=== PATIENT | female | born 1955 | race Caucasian/White ===

== ENCOUNTER → 2023-11-23 08:13 | Outpatient (REF) | payer OTHER, SELFPAY | LOC: HWWDC 08:13 | PROVIDERS: ATTENDING PHYSICIAN Obstetrics & Gynecology; FAMILY PHYSICIAN Internal Medicine | DX: Z12.31 Encounter for screening mammogram for malignant neoplasm of breast (principal) | CPT/HCPCS: 77063; 77067 ==

== ENCOUNTER 2024-09-23 14:28 | Emergency (ER) | payer MEDICARE, SELFPAY ==
[2024-09-23 14:58] VITALS: BP 158/93
[2024-09-23 15:23] LABS: % Basophils 0.4 % (0-2); % Eosinophils 0.2 % (0-6); % Immature Granulocytes 0.2 % (0-0.5); % Lymphocytes 21.8 % (20.5-51.1); % Monocytes 6.1 % (1.7-9.3); % Neutrophils 71.3 % (42.2-75.2); Absolute Lymphocytes 1.2 10^3/uL (1.2-3.4); Absolute Monocytes 0.3 10^3/uL (0.1-0.6); Hematocrit 40.5 % (37.0-47.0); Hemoglobin 13.6 g/dL (12.0-16.0); Mean Corp Hgb Conc. 33.6 g/dL (33.0-37.0); Mean Corpuscular Hgb 29.8 pg (27.0-31.0); Mean Corpuscular Volume 88.6 fL (81.0-99.0); Mean Platelet Volume 10.1 fL (7.4-10.4); Nucleated Red Blood Cells % 0 %; Platelet Count 242 10^3/uL (130-400); Red Blood Cell Count 4.57 10^6/uL (4.20-5.40); Red Cell Dist. Width 12.8 % (11.5-14.5); White Blood Cell Count 5.6 10^3/uL (4.8-10.8)
[2024-09-23 15:39] LABS: ALT (SGPT) 21 U/L (0-35); AST (SGOT) 27 U/L (14-36); Albumin 4.8 g/dl (3.5-5.0); Alkaline Phosphatase 67 U/L (38-126); Blood Urea Nitrogen 17 mg/dl (7-17); Calcium 10.9 mg/dl (8.4-10.2); Carbon Dioxide 30 mmol/L (22-30); Chloride 100 mmol/L (98-107); Glucose 93 mg/dl (70-99); Potassium 4.4 mmol/L (3.5-5.1); Sodium 137 mmol/L (135-145); Total Bilirubin 0.6 mg/dl (0.2-1.3); Total Protein 7.4 g/dl (6.3-8.2); eGFR > 60.00
[2024-09-23 15:45] LABS: Troponin I < 0.012 ng/ml
--- NOTE | 2024-09-23 16:49 | ED.GENMED ---
History of Present Illness
General
Chief Complaint: Cardiac Symptoms
Time Seen by Provider: 09/23/24 16:48
History of Present Illness
History of Present Illness:
68-year-old female history of hypertension, hyperlipidemia presenting with chest pain described as a throbbing dull ache starting last night. Patient states that pain is intermittent, can last up to 1 hour. Patient denies shortness of breath,
fever, chills, cough or leg swelling. Patient states that she was able to walk the treadmill with no worsening of symptoms this morning. Patient states that did get better when she rested though. Patient states that she was seen by her PCP who
did an EKG, advised to go to the ER for further evaluation. Patient denies any chest pain currently
Past History
Past History
ED Past Medical History: HTN
ED Past Surgical History: None
Social History
Tobacco: Non-smoker
Alcohol: None
Family History
Family History: Other (CVA)
Phy Exam
Physical Exam
Physical Exam:
General: Alert, no acute distress
Head: NCAT
Eyes: clear conjunctiva
Neck: supple
Cardiac: regular rate and rhythm, no murmur
Lungs: clear to auscultation bilaterally. No wheezes, rales, or rhonchi. Speaking full unlabored sentences. No respiratory distress.
Abdomen: soft, nondistended nontender. No rebound or guarding.
MSK: no lower extremity edema bilaterally. No deformity
Skin: warm, dry
Neuro: Alert and oriented x3. no focal deficits
Scores
Heart Score for Chest Pain Patients
STEMI patient?: No
History: Slightly or Non-Suspicious
ECG: Normal
Age: >/= 65 years
Risk Factors: 1 or 2 Risk Factors
Troponin: </= Normal Limit
Heart Score for Chest Pain Patients: 3
Heart Score Risk: 2.5% MACE over next 6 weeks
Course
Orders/Labs/Results
Orders:
Orders
09/23/24
Electrocardiogram (*1) Stat
Comment: DONE
09/23/24 15:10
Complete Blood Count/With Diff Urgent
Comprehensive Metabolic Panel Urgent
Troponin I Urgent
09/23/24 16:51
CXR2 [CR Chest - 2 Views ] Urgent
Comment:
Reason For Exam: chest pain
09/23/24 18:33
Troponin I Urgent
Abnormal Lab Results
09/23/24
15:10
Calcium 10.9 H mg/dl
(8.4-10.2)
09/23/24 15:10
09/23/24 15:10
Vital Signs
Initial and Last Documented VS:
Initial Vital Signs
Temp Pulse Resp BP Pulse Ox
97.7 F 66 16 158/93 100
09/23/24 14:58 09/23/24 14:58 09/23/24 14:58 09/23/24 14:58 09/23/24 14:58
Last Documented Vital Signs
Temp Pulse Resp BP Pulse Ox
97.7 F 66 16 158/93 100
09/23/24 14:58 09/23/24 14:58 09/23/24 14:58 09/23/24 14:58 09/23/24 14:58
MDM/Problems Addressed
Differential Diagnosis Includes:
NSTEMI, pneumonia, stable angina
MDM/Problems Addressed:
68-year-old female presenting with nonradiating nonexertional nonpleuritic dull chest pain starting last night, none now. Initial troponin within normal limits. EKG nonischemic. Heart score 3. Will repeat troponin, obtain CXR, reevaluate
Second troponin negative. Chest x-ray clear with no acute consolidation or focal history as read by me. Hemodynamically stable. Stable for discharge with cardiology follow-up
*EKG
Interpreted by ED Provider?: Yes (EKG shows normal sinus rhythm at 69 bpm with IN 156 QTc 413 no acute ischemic changes)
*Critical Care Note
Total Time (30-74mins, 75-104mins- exclusive of procedures): Not Applicable
ED Attending Note
-
Portions of this chart may have been created with voice recognition software.� Occasional wrong word or��sound alike� substitutions may have occurred due to the inherent limitations of voice recognition software.
Discharge Plan
Departure
Patient Disposition: Home (Routine Discharge)
Date of Disposition: 09/23/24
Time of Disposition: 19:26
Patient with high blood pressure during this ER visit?: Yes
Discharge Problem:
Chest pain
Instructions: Chest Pain CBC Follow Up
Prescriptions:
No Action
lisinopril-hydrochlorothiazide 1 EACH tablet
1 ea PO DAILY
Referrals:
aSvi Ronquillo, [Family Provider] -
Activity Restrictions/Additional Instructions:
Follow up with cardiology next week
Return to the emergency department for new/worsening symptoms
Interventions
Interventions:
*Risk Screen - Suicide Last Done: 09/23/24 14:58
*General Assessment Last Done: 09/23/24 14:58
*Neglect/Abuse Screening Last Done: 09/23/24 14:58
ED- Fall Risk Assessment Last Done: 09/23/24 18:00
*Nursing Disposition Last Done: 09/23/24 20:10
ED- Pulmonary Assessment Last Done: 09/23/24 18:00
ED- Cardiac Assessment Last Done: 09/23/24 18:00
Discharge Date and Time
Discharge Date/Time: 09/23/24 20:11
Print Language: QATARI
[2024-09-23 19:01] LABS: Troponin I < 0.012 ng/ml
== END 2024-09-23 20:11 | disposition home or self-care (01) ==
LOC: EMR 14:28
PROVIDERS: Emergency Medicine; EMERGENCY PHYSICIAN Emergency Medicine; FAMILY PHYSICIAN Internal Medicine
DX: R07.89 Other chest pain (principal); I10 Essential (primary) hypertension; E78.00 Pure hypercholesterolemia, unspecified; Z82.3 Family history of stroke
CPT/HCPCS: 99283; 71046; 80053; 84484; 85025; 93005

== ENCOUNTER → 2024-11-24 10:07 | Outpatient (REF) | payer MEDICARE, OTHER, SELFPAY | LOC: HWWDC 10:07 | PROVIDERS: ATTENDING PHYSICIAN Obstetrics & Gynecology; FAMILY PHYSICIAN Internal Medicine | DX: Z12.31 Encounter for screening mammogram for malignant neoplasm of breast (principal) | CPT/HCPCS: 77063; 77067 ==